=== PATIENT | male | born 1980 | race Caucasian/White ===

== ENCOUNTER 2021-01-13 22:44 | Inpatient (IN) | payer BC, OTHER ==
[~2021-01-13] VITALS: Ht 180 cm; Wt 97.0 kg
[2021-01-13] MEDS ORDERED: ACETAMINOPHEN 500 MG TAB (TYLENOL) PO ONE (23:00)
[2021-01-13] MEDS ORDERED: ONDANSETRON 4 MG/2 ML (SDV) Z0FRAN IVP ONE (23:00)
[2021-01-13] MEDS ORDERED: cefTRIAXone 2,000 MG in NS (IVPB) 50 ML IV ONE (23:00)
[2021-01-13] MEDS ORDERED: KETOROLAC 30 MG/ML VIAL IVP ONE (23:00)
[2021-01-13] MEDS ORDERED: NS IV 1000 ML 1,000 ML IV SCH (23:00)
--- NOTE | 2021-01-13 23:15 | ED General ---
General Chief Complaint: - Reproductive Stated Complaint: UNRIMARY PAIN/CHILLS Nursing Triage Note: Pt reports beeing dx with UTI by PCP in [place] today. Pt is c/o fever, back spasms x 1 hour. Pt given amoxicillin today. Denies CP or SOA. Pt is A&O x 4. History of Present Illness Date Seen by Provider: Jan 13, 2021 Time Seen by Provider: 23:10 Initial Comments Patient presenting to emergency department for evaluation of fevers chills aches dysuria that started yesterday but became worse today. He was seen at an urgent care in [place] and diagnosed with a urinary tract infection and was prescribed amoxicillin and he took 1 dose this afternoon and another dose this evening however he says that he is feeling much worse. He presented with tachycardia at 130 and a fever of 38.1. Patient says that he did not bring the testing from the urgent care but he was told it was definitely a significant urinary tract infection. Patient says he has a history of psoriatic arthritis but does not take any immunosuppressants. He says he has been vaccinated for the Covid virus. He denies cough abdominal pain headache neck stiffness rash or shortness of breath. He says he does have back pain and that the chills at times can cause his whole body to spasm. He appears nontoxic but is febrile and tachycardic. Allergies and Home Medications Allergies Coded Allergies: No Known Drug Allergies (Unverified , 01/13/21) Patient Home Medication List Home Medication List Reviewed: Yes Review of Systems Review of Systems Constitutional: chills, fever Respiratory: no symptoms reported Cardiovascular: no symptoms reported Gastrointestinal: no symptoms reported Genitourinary: dysuria Musculoskeletal: back pain Skin: no symptoms reported Psychiatric/Neurological: No Symptoms Reported All Other Systems Reviewed Negative Unless Noted: Yes Physical Exam Vital Signs Vital Signs - First Documented 01/13/21 22:57 Temp 38.1 Pulse 135 Resp 16 B/P (MAP) 133/70 (91) Pulse Ox 96 O2 Delivery Room Air Capillary Refill : Less Than 3 Seconds Height, Weight, BMI Height: '" Weight: lbs. oz. kg; 29.00 BMI Method: General Appearance: No Apparent Distress HEENT: PERRL/EOMI Neck: Supple Respiratory: No Respiratory Distress Cardiovascular: Tachycardia Gastrointestinal: Non Tender, Soft Back: Normal Inspection Extremity: Normal Capillary Refill Neurologic/Psychiatric: Alert, Oriented x3 Skin: Warm/Dry Focused Exam Lactate Level 01/13/21 23:00: Lactic Acid Level 1.26 Lactic Acid Level Laboratory Tests Test 01/13/21 23:00 Lactic Acid Level 1.26 MMOL/L (0.50-2.00) Progress/Results/Core Measures Suspected Sepsis SIRS Temperature: Pulse: 135 Respiratory Rate: 16 Laboratory Tests 01/13/21 23:00: White Blood Count 9.3 Blood Pressure 133 /70 Mean: 91 01/13/21 23:00: Lactic Acid Level 1.26 Laboratory Tests 01/13/21 23:00: Creatinine 1.00, Platelet Count 192, Total Bilirubin 0.4 Results/Orders Lab Results Laboratory Tests Test 01/13/21 23:00 01/13/21 23:40 Range/Units White Blood Count 9.3 4.3-11.0 10^3/uL Red Blood Count 4.78 4.30-5.52 10^6/uL Hemoglobin 13.4 13.3-17.7 g/dL Hematocrit 40 40-54 % Mean Corpuscular Volume 84 80-99 fL Mean Corpuscular Hemoglobin 28 25-34 pg Mean Corpuscular Hemoglobin Concent 33 32-36 g/dL Red Cell Distribution Width 13.8 10.0-14.5 % Platelet Count 192 130-400 10^3/uL Mean Platelet Volume 10.0 9.0-12.2 fL Immature Granulocyte % (Auto) 0 % Neutrophils (%) (Auto) 91 H 42-75 % Lymphocytes (%) (Auto) 4 L 12-44 % Monocytes (%) (Auto) 4 0-12 % Eosinophils (%) (Auto) 0 0-10 % Basophils (%) (Auto) 0 0-10 % Neutrophils # (Auto) 8.4 H 1.8-7.8 X 10^3 Lymphocytes # (Auto) 0.4 L 1.0-4.0 X 10^3 Monocytes # (Auto) 0.4 0.0-1.0 X 10^3 Eosinophils # (Auto) 0.0 0.0-0.3 10^3/uL Basophils # (Auto) 0.0 0.0-0.1 10^3/uL Immature Granulocyte # (Auto) 0.0 0.0-0.1 10^3/uL Neutrophils % (Manual) 79 % Lymphocytes % (Manual) 14 % Monocytes % (Manual) 1 % Band Neutrophils 5 % Atypical Lymphocytes 1 % Platelet Estimate NORMAL Blood Morphology Comment NORMAL Sodium Level 136 135-145 MMOL/L Potassium Level 3.8 3.6-5.0 MMOL/L Chloride Level 100 98-107 MMOL/L Carbon Dioxide Level 22 21-32 MMOL/L Anion Gap 14 5-14 MMOL/L Blood Urea Nitrogen 20 H 7-18 MG/DL Creatinine 1.00 0.60-1.30 MG/DL Estimat Glomerular Filtration Rate 82 BUN/Creatinine Ratio 20 Glucose Level 193 H 70-105 MG/DL Lactic Acid Level 1.26 0.50-2.00 MMOL/L Calcium Level 9.0 8.5-10.1 MG/DL Corrected Calcium 8.8 8.5-10.1 MG/DL Total Bilirubin 0.4 0.1-1.0 MG/DL Aspartate Amino Transf (AST/SGOT) 24 5-34 U/L Alanine Aminotransferase (ALT/SGPT) 30 0-55 U/L Alkaline Phosphatase 100 40-136 U/L Total Protein 6.9 6.4-8.2 GM/DL Albumin 4.3 3.2-4.5 GM/DL Urine Color YELLOW Urine Clarity CLOUDY Urine pH 6.0 5-9 Urine Specific [place] 1.010 L 1.016-1.022 Urine Protein NEGATIVE NEGATIVE Urine Glucose (UA) NEGATIVE NEGATIVE Urine Ketones NEGATIVE NEGATIVE Urine Nitrite NEGATIVE NEGATIVE Urine Bilirubin NEGATIVE NEGATIVE Urine Urobilinogen 0.2 < = 1.0 MG/DL Urine Leukocyte Esterase 3+ H NEGATIVE Urine RBC (Auto) TRACE-I H NEGATIVE Urine RBC RARE /HPF Urine WBC 50-100 H /HPF Urine Crystals NONE /LPF Urine Bacteria MODERATE H /HPF Urine Casts NONE /LPF Urine Mucus SMALL H /LPF Urine Culture Indicated YES My Orders Orders - LARA FRIEND DO Blood Culture (01/13/21 23:00) Iv/Invasive Line Insertion .IV start (01/13/21 23:00) Cbc With Automated Diff (01/13/21 23:00) Comprehensive Metabolic Panel (01/13/21 23:00) Ua Culture If Indicated (01/13/21 23:00) Lactic Acid Analyzer (01/13/21 23:00) Ns Iv 1000 Ml (Sodium Chloride 0.9%) (11/11/21 23:00) Ondansetron Injection (Zofran Injectio (01/13/21 23:00) Ketorolac Injection (Toradol Injection) (01/13/21 23:00) Acetaminophen Tablet (Tylenol Tablet) (01/13/21 23:00) Ceftriaxone (Rocephin) (01/13/21 23:00) Manual Differential (01/13/21 23:00) Ns Iv 1000 Ml (Sodium Chloride 0.9%) (01/13/21 23:49) Urine Culture (01/13/21 23:40) Ct Abdomen/Pelvis W (01/14/21 00:23) Medications Given in ED Current Medications Medications Dose Ordered Sig/Rafael Route Start Time Stop Time Status Last Admin Dose Admin Acetaminophen 1,000 mg ONCE ONCE PO 01/13/21 23:00 01/13/21 23:02 DC 01/13/21 23:05 1,000 MG Ceftriaxone Sodium 2000 mg/ Sodium Chloride 50 ml @ 100 mls/hr ONCE ONCE IV 01/13/21 23:00 01/13/21 23:29 DC 01/13/21 23:05 100 MLS/HR Ketorolac Tromethamine 15 mg ONCE ONCE IVP 01/13/21 23:00 01/13/21 23:02 DC 01/13/21 23:05 15 MG Ondansetron HCl 4 mg ONCE ONCE IVP 01/13/21 23:00 01/13/21 23:02 DC 01/13/21 23:05 4 MG Vital Signs/I&O 01/13/21 01/13/21 22:57 23:05 Temp 38.1 38.1 Pulse 135 Resp 16 B/P (MAP) 133/70 (91) Pulse Ox 96 O2 Delivery Room Air Capillary Refill : Less Than 3 Seconds Blood Pressure Mean: 91 Progress Note : Progress Note Patient does meet septic criteria with his fever and tachycardia. I will check labs urinalysis start treating him for sepsis and reassess. His map is 83 so he does not need pressors at this time. Patient has symptoms consistent with pyelonephritis given his strong UTI on urinalysis and having back pain. Patient is requesting transfer to [facility] so I spoke to a Dr. Park and he said that they cannot request him as he feels that a urology consult may be necessary and they do not have a urologist. I explained this to the patient and then he said that he is okay with transfer to [facility]. I spoke to Dr. Duarte and she agreed to accept patient for transfer. Patient has improved significantly as he is now resting comfortably and his heart rate has improved from 1 35-90 and he continues to have a map greater than 75. He does not meet severe sepsis criteria as his lactate is below 4 and his blood pressure is normal. 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 Patient's kidney function is normal. Given he is a male with a urinary tract infection I am going to get a CT scan to rule out other pathology such as renal abscess. Ureter stone is felt to be less likely given there is no hematuria but this is certainly a possibility as well. Patient will be transferred in a stable condition with much improved vital signs in the emergency department. Critical Care Note Critical Care Total Time (minutes) 35 Departure Impression Primary Impression: UTI (urinary tract infection) Qualified Codes: N10 - Acute pyelonephritis Additional Impressions: Sepsis Qualified Codes: A41.9 - Sepsis, unspecified organism Failure of outpatient treatment Hyperglycemia Disposition: ADMITTED INPATIENT Condition: Stable Transfer Transfer Reason: Exceeds level of care Time Spoke to Accepting Phy: 12:25 Transfer Facility: [facility] Method of Transfer: EMS Departure-Patient Inst. Referrals: SHARON MATTSON MD (PCP/Family) Primary Care Physician LARA FRIEND DO Jan 13, 2021 23:15
[2021-01-13 23:23] LABS: HEMOGLOBIN 13.4 g/dL (13.3-17.7); MEAN CORPUSCULAR HEMOGLOBIN 28 pg (25-34); WHITE BLOOD COUNT 9.3 10^3/uL (4.3-11.0)
[2021-01-13 23:24] LABS: BASOPHILS % (AUTO) 0 % (0-10); EOSINOPHILS % (AUTO) 0 % (0-10); HEMATOCRIT 40 % (40-54); LYMPHOCYTES # (AUTO) 0.4 X 10^3 (1.0-4.0); LYMPHOCYTES % (AUTO) 4 % (12-44); MEAN CORPUSCULAR HGB CONC 33 g/dL (32-36); MEAN CORPUSCULAR VOLUME 84 fL (80-99); MONOCYTES # (AUTO) 0.4 X 10^3 (0.0-1.0); MONOCYTES % (AUTO) 4 % (0-12); NEUTROPHILS # (AUTO) 8.4 X 10^3 (1.8-7.8); NEUTROPHILS % (AUTO) 91 % (42-75); PLATELET COUNT 192 10^3/uL (130-400)
[2021-01-13 23:39] LABS: BAND NEUTROPHILS 5 %; LYMPHOCYTES % (MANUAL) 14 %; NEUTROPHILS % (MANUAL) 79 %
[2021-01-13 23:40] LABS: ATYPICAL LYMPHOCYTES 1 %; MONOCYTES % (MANUAL) 1 %; PLATELET ESTIMATE NORMAL; RBC MORPH NORMAL
[2021-01-13 23:44] LABS: POTASSIUM 3.8 MMOL/L (3.6-5.0)
[2021-01-13 23:45] LABS: ALBUMIN 4.3 GM/DL (3.2-4.5); BILIRUBIN,TOTAL 0.4 MG/DL (0.1-1.0); TOTAL PROTEIN 6.9 GM/DL (6.4-8.2)
[2021-01-13] MEDS ORDERED: NS IV 1000 ML 2,000 ML ONE (23:49)
[2021-01-13 23:51] LABS: BILIRUBIN,URINE NEGATIVE (NEGATIVE); CLARITY,URINE CLOUDY; COLOR,URINE YELLOW; GLUCOSE, URINE (UA) NEGATIVE (NEGATIVE); KETONES,URINE NEGATIVE (NEGATIVE); LEUKOCYTE ESTERASE ,URINE 3+ (NEGATIVE); NITRITE,URINE NEGATIVE (NEGATIVE); PROTEIN,URINE NEGATIVE (NEGATIVE)
[2021-01-13 23:58] LABS: BACTERIA,URINE MODERATE /HPF; RBC,URINE RARE /HPF; WBC,URINE 50-100 /HPF
[2021-01-14] MEDS ORDERED: NS 100 ML (IVPB) BAG IV ONE (00:45)
[2021-01-14] MEDS ORDERED: HOLD METFORMIN - RECEIVED CONTRAST 20 ML VIAL IV SCH (00:45)
[2021-01-14] MEDS ORDERED: IOHEXOL 350 MG/ML 100 ML (OMNIPAQUE 350) VIAL IV ONE (00:45)
[2021-01-14 02:02] VITALS: BP 103/75
--- OUTSIDE RECORDS SUMMARY | 2021-01-14 02:14 | XMS REPORT | Clinical Summary ---
Author Author [facility] Organization [facility] Address Unknown Phone Unavailable Care Team Providers Care Executive Director Contract Shop Name Role Phone Sekou Coats MD PCP Allergies No known active allergies Medications End Date Status Medication Sig Dispensed Refills Start Date Active citalopram (CELEXA) 20 mg Take 30 mg by 0 tablet mouth daily. Active omeprazole (PRILOSEC) 20 Take 20 mg by 0 MG capsule mouth 2 (two) times a day. Active Problems Not on file Social History Date Tobacco Use Types Packs/Day Years Used Never Smoker Comments Alcohol Use Standard Drinks/Week No 0 (1 standard drink = 0.6 o z pure alcohol) Sex Assigned at Date Recorded Not on file Last Filed Vital Signs Reading Time Taken Comments Vital Sign 124/78 09/19/2016 7:41 PM CDT Blood Pressure 71 09/19/2016 7:41 PM CDT Pulse 36.7 C (98.1 F) 09/19/2016 4:18 PM CDT Temperature 22 09/19/2016 7:41 PM CDT Respiratory Rate 95% 09/19/2016 7:41 PM CDT Oxygen Saturation - - Inhaled Oxygen Concentration 93 kg (205 lb 0.4 oz) 09/19/2016 6:09 PM CDT Weight 177.8 cm (5' 10") 09/19/2016 4:18 PM CDT Height 29.42 09/19/2016 4:18 PM CDT Body Mass Index Plan of Treatment Not on file Results Not on filefrom Last 3 Months Insurance Type Payer Benefit Subscriber ID Effective Phone Address Plan / Dates Group BLUE CROSS BLUE SHIELD [facility] PREF [id number] 2012-P [address] [facility] [employer] cristinoent [id number] [place] [address] Conor Thrasher Personal/F Self 1980 [address] [place] (Home) [place] [address] Conor Thrasher Personal/F Self 1980 [address] [place] (Home) [place] [address] Advance Directives For more information, please contact: [phone] Patient Database Specialist Explanation Type Date Recorded Advance Directives and Living Will Power of Computer Numerical Control Grinder Care Teams Start Date End Date Executive Director Contract Shop Relationship Specialty 09/19/16 Sekou Coats MD PCP - General Family [address] [place] [id number]
--- OUTSIDE RECORDS SUMMARY | 2021-01-14 02:14 | XMS REPORT | Encounter Summary ---
Author Author [facility] Organization [facility] Address Unknown Phone Unavailable Care Team Providers Care Tube Mill Operator Name Role Phone Sekou Coats MD PCP Reason for Visit * Reason Comments Medication Refill Encounter Details Care Team Description Date Type Department Chaka Anaya MD [address] [place] [id number] 01/08/2021 Refill Rheumatology: [facility] [address] [place] [phone] Social History Date Tobacco Use Types Packs/Day Years Used Never Smoker Smokeless Tobacco: Current User Comments Alcohol Use Standard Drinks/Week Not Currently 0 (1 standard drink = 0.6 o z pure alcohol) Sex Assigned at Date Recorded Male 07/15/2020 12:46 PM CDT documented as of this encounter Functional Status Date of Assessment Functional Status Response 10/12/2020 Does the patient have a hearing impairment: No 10/12/2020 Does the patient have a visual impairment: No 10/12/2020 Does the patient have impaired ambulation: No 10/12/2020 Does the patient have an activity of daily living No (ADL) impairment: 10/12/2020 Does the patient have an instrumental activity of No daily living (IADL) impairment: Date of Assessment Cognitive Status Response 10/12/2020 Does the patient have a cognitive impairment: No documented as of this encounter Ordered Prescriptions Start Date End Date Prescription Sig Dispensed Refills 01/10/2021 naproxen (NAPROSYN) 500 TAKE 1 TABLET 60 tablet 1 mg tablet BY MOUTH TWICE DAILY WITH MEALS AND WITH FOOD documented in this encounter Plan of Treatment Not on filedocumented as of this encounter Visit Diagnoses Not on filedocumented in this encounter Discontinued Medications Start Date End Date Medication Sig Discontinue Reason 11/10/2020 01/10/2021 naproxen (NAPROSYN) 500 Take one mg tablet tablet by mouth twice daily with meals. Take with food. documented as of this encounter Additional Health Concerns Noted Time Assessment 10/12/2020 10:17 AM CDT A fall risk assessment has been complet ed for the patient 10/12/2020 10:17 AM CDT PHQ-2 Depression Total Score: 0 documented as of this encounter Care Teams Start Date End Date Tube Mill Operator Relationship Specialty 07/15/20 Sekou Coats MD PCP - General [address] [phone] documented as of this encounter
--- OUTSIDE RECORDS SUMMARY | 2021-01-14 02:14 | XMS REPORT | Clinical Summary ---
Author Author [facility] Organization [facility] Address Unknown Phone Unavailable Care Team Providers Care Refining Equipment Operator Name Role Phone Sekou Coats MD PCP Source Comments Some departments are not documenting in the electronic medical record. If you d o not see the information that you expected, contact Release of Information in [facility] [employer] Information Management department at [phone] for further assistan ce in locating additional records.[facility] Allergies Comments Active Allergy Reactions Severity Noted Date Sinu pressure Seasonal Allergies SNEEZING, SEE Low 11/26/2015 COMMENTS Medications End Date Status Medication Sig Dispensed Refills Start Date Active omeprazole DR(+) Take 20 mg by 0 (PRILOSEC) 40 mg capsule mouth daily before breakfast. 20 mg Active fluticasone (FLONASE) 50 Apply 2 0 mcg/actuation nasal spray Sprays to each nostril as directed daily. Shake bottle gently before using. Active duloxetine DR (CYMBALTA) Take 60 mg by 0 60 mg capsule mouth daily. Active lisinopriL (ZESTRIL) 5 mg Take 5 mg by 0 tablet mouth daily. Active loratadine (CLARITIN) 10 Take 10 mg by 0 mg tablet mouth every morning. Active NALTREXONE 1.5 MG ORAL Take one 30 capsule 1 CAPSULE (COMPOUND) capsule by 1 mouth daily. Active naproxen (NAPROSYN) 500 TAKE 1 TABLET 60 tablet 1 mg tablet BY MOUTH 1 TWICE DAILY WITH MEALS AND WITH FOOD 01/10/2021 Discontinued naproxen (NAPROSYN) 500 Take one 60 tablet 1 mg tablet tablet by 1 mouth twice daily with meals. Take with food. Active Problems Problem Noted Date Psoriatic arthritis 11/26/2015 Encounters Care Team Description Date Type Specialty Chaka Anaya MD 01/08/2021 Refill Rheumatology Chaka Anaya MD 12/08/2020 Refill Rheumatology Chaka Anaya MD 11/12/2020 Hospital Lab Encounter 11/12/2020 Travel from Last 3 Months Surgical History Surgery Date Site/Laterality Comments ANKLE SURGERY x3 1994 Medical History Medical History Date Comments Psoriasis Psoriatic arthritis (HCC) Iritis Hypertension Depression Family History Medical History Relation Name Comments Cancer Father Hearing Loss Father Diabetes Maternal Grandfather Vision Loss Paternal Grandfather Arthritis Paternal Grandmother Arthritis-osteo Paternal Grandmother Relation Name Status Comments Father Alive throat Maternal Grandfather Mother Alive Paternal Grandfather Paternal Grandmother Social History Date Tobacco Use Types Packs/Day Years Used Never Smoker Smokeless Tobacco: Current User Comments Alcohol Use Standard Drinks/Week Not Currently 0 (1 standard drink = 0.6 o z pure alcohol) Sex Assigned at Date Recorded Male 07/15/2020 12:46 PM CDT Last Filed Vital Signs Reading Time Taken Comments Vital Sign 135/79 10/12/2020 10:19 AM CDT Blood Pressure 100 10/12/2020 10:11 AM CDT Pulse 36.4 C (97.5 F) 10/12/2020 10:11 AM CDT Temperature 18 10/12/2020 10:11 AM CDT Respiratory Rate 98% 10/12/2020 10:11 AM CDT Oxygen Saturation - - Inhaled Oxygen Concentration 98.4 kg (217 lb) 10/12/2020 10:11 AM CDT Weight 180.3 cm (5' 11") 10/12/2020 10:11 AM CDT Height 30.27 10/12/2020 10:11 AM CDT Body Mass Index Plan of Treatment Health Maintenance Due Date Last Done Comments HIV SCREENING 1994 DTAP/TDAP VACCINES (1 - 1997 Tdap) PHYSICAL (COMPREHENSIVE) 1997 EXAM INFLUENZA VACCINE 10/03/2020 HEPATITIS C SCREENING Completed 10/12/2020 Procedures Comments Procedure Name Priority Date/Time Associated Diag nosis HC HEPATIC FUNCTION PANEL Routine 11/12/2020 Elev ated alanine 3:55 PM CDT aminotransferase (ALT) level from Last 3 Months Results * LIVER FUNCTION PANEL (11/12/2020 3:55 PM CDT) Total Bilirubin 0.3 0.3 - 1.2 MG/DL [facility] Bilirubin, <0.1 <0.4 MG/DL [facility] Direct Albumin 4.6 3.5 - 5.0 G/DL [facility] Alk Phosphatase 75 25 - 110 U/L [facility] AST (SGOT) 36 7 - 40 U/L [facility] ALT (SGPT) 91 (H) 7 - 56 U/L [facility] Total Protein 7.3 6.0 - 8.0 G/DL [facility] Specimen Blood Performing Organization Address City/State/ZIP Code P agueda Number [facility] [address] [place] [address] from Last 3 Months Insurance Type Payer Benefit Subscriber ID Effective Phone Address Plan / Dates Group PPO BCBS GIANNA BCBS GIANNA [id number] 2012-P [phone] [id number] [place] [address] Advance Directives Patient Nurse Research Explanation Type Date Recorded Advance Directive/DPOA Care Teams Start Date End Date Refining Equipment Operator Relationship Specialty 07/15/20 Sekou Coats MD PCP - General Family [address] [place] [phone]
--- OUTSIDE RECORDS SUMMARY | 2021-01-14 02:15 | XMS REPORT | Encounter Summary ---
Author Author [facility] Organization [facility] Address Unknown Phone Unavailable Care Team Providers Care Machine Crater Name Role Phone Sekou Coats MD PCP Reason for Visit * Reason Comments Medication Refill Encounter Details Care Team Description Date Type Department Chaka Anaay MD [address] [place] [id number] 12/08/2020 Refill Rheumatology: [facility] [address] [phone] Social History Date Tobacco Use Types Packs/Day Years Used Never Smoker Smokeless Tobacco: Current User Comments Alcohol Use Standard Drinks/Week Not Currently 0 (1 standard drink = 0.6 o z pure alcohol) Sex Assigned at Date Recorded Male 07/15/2020 12:46 PM CDT Date Recorded COVID-19 Exposure Response 11/12/2020 3:43 PM CDT In the last month, have you been in contact with No / Unsure someone who was confirmed or suspected to have Coronavirus / COVID-19? documented as of this encounter Functional Status [...] Date End Date Prescription Sig Dispensed Refills 12/10/2020 NALTREXONE 1.5 MG ORAL Take one 30 capsule 1 CAPSULE (COMPOUND) capsule by mouth daily. documented in this encounter Miscellaneous Notes * Telephone Encounter - Whit Cruz RN - 12/10/2020 12:13 PM CDT Pharmacy is requesting a refill of naltrexone. Pt last seen 10/12/20. Pt schedule d for follow up on 03/15/21. Per last OV "The plan today is to start him on low-d ose naltrexone, this is specifically given the fact that fatigue seems to be the most prominent problem he is dealing with, and this may be helpful in this rega rd, less favorable options would include stimulants moving forward which we will consider, I will start 1.5 mg daily and increase the dose as needed, he will use higher dose of naproxen, 500 mg twice daily while remains on omeprazole, at this point in time I do not plan to start him on any biological therapy but we will consider Stelara or other TNF inhibitors moving forward." Routing to Dr. Anaya for review. documented in this encounter Plan of Treatment Not on filedocumented as of this encounter Visit Diagnoses Not on filedocumented in this encounter Discontinued Medications Start Date End Date Medication Sig Discontinue Reason 10/12/2020 12/08/2020 NALTREXONE 1.5 MG ORAL Take one Reorder CAPSULE (COMPOUND) capsule by mouth daily. documented as of this encounter Additional Health Concerns Noted Time Assessment 10/12/2020 10:17 AM CDT A fall risk assessment has been complet ed for the patient 10/12/2020 10:17 AM CDT PHQ-2 Depression Total Score: 0 documented as of this encounter Care Teams Start Date End Date Machine Crater Relationship Specialty 07/15/20 Sekou Coats MD PCP - [address] [phone] documented as of this encounter
[2021-01-14] MEDS ORDERED: NS IV 1000 ML 1,000 ML ONE (02:16)
[2021-01-14] MEDS ORDERED: IBUPROFEN 600 MG (MOTRIN) TAB PO PRN (02:45)
[2021-01-14] MEDS ORDERED: ACETAMINOPHEN 500 MG TAB (TYLENOL) PO PRN (02:45)
[2021-01-14] MEDS: NS IV 1000 ML 1,000 ML IV SCH ×2 (03:19→08:41)
[2021-01-14 04:00] VITALS: BP 106/65
--- NOTE | 2021-01-14 04:58 | Diagnostic Imaging Report ---
PROCEDURE: CT abdomen and pelvis with contrast. TECHNIQUE: Multiple contiguous axial images were obtained through the abdomen and pelvis after administration of intravenous contrast. Auto Exposure Controls were utilized during the CT exam to meet ALARA standards for radiation dose reduction. All CT scans use one or more of the following dose optimizing techniques: automated exposure control, MA and/or KvP adjustment based on patient size and exam type or iterative reconstruction. INDICATION: Painful burning urination, spasms. No priors. FINDINGS: The urinary bladder is distended with its fundal aspect extending to the level of the umbilicus measuring 18 cm in length x 9.8 cm transverse x 11.5 cm AP (estimated volume 1055 mL). Despite this magnitude of distention the bladder wall is thickened; correlate for cystitis. The bladder wall thickening is homogenous and diffuse with no focal nodularity or discrete measurable mass. There is no appreciable perivesical stranding or edema. The patient has mild bilateral hydroureteronephrosis. The ureters are dilated through the ureterovesical junctions with no opaque urinary tract calculi. No perinephric or periureteric stranding. No urinoma. No appreciable opaque urinary tract calculi. Liver, gallbladder, bile ducts, spleen, adrenals, pancreas unremarkable. The aortoiliac vessels patent and nonaneurysmal. There is no small or large bowel obstruction. There is no pneumatosis or free gas. There is no appendicitis or diverticulitis. Prostate and seminal vesicles unremarkable. The lung bases and the osseous structures are unremarkable. IMPRESSION: 1. Thick-walled distended urinary bladder with estimated volume of greater than 1000 mL. This likely accounts for mild bilateral hydroureteronephrosis with no opaque stone or discrete mass. Nonfocal nonenlarged and nonacute appearing prostate. 2. The remaining abdominal pelvic solid and hollow viscera were unremarkable. Dictated by: Dictated on workstation # [id number]
[2021-01-14] MEDS ORDERED: CATHETER FLUSH 10 ML SYR IV PRN (07:30)
[2021-01-14 07:34] VITALS: BP 107/68
[2021-01-14] MEDS ORDERED: LORA10TA76 PO (11:23)
[2021-01-14] MEDS ORDERED: LISI10TA25 PO (11:23)
[2021-01-14] MEDS ORDERED: NAPR-915 PO (11:23)
[2021-01-14] MEDS ORDERED: NALTREXONE PO (11:23)
[2021-01-14] MEDS ORDERED: ASPI-789 PO (11:23)
[2021-01-14] MEDS ORDERED: OMEP20CA18 PO (11:23)
[2021-01-14] MEDS ORDERED: DULO60CA59 PO (11:23)
[2021-01-14] MEDS ORDERED: AMOX1TAB12 PO (11:23)
[2021-01-14 11:33] VITALS: BP 105/54
--- NOTE | 2021-01-14 12:26 | Short Stay Summary ---
HPI History of Present Illness: 40 yo M with h/o urethral stricture that presented with abdominal pain and chills. Patient states that he started feeling bad yesterday afternoon and went into walkin clinic and was told he had a bad UTI. He then went and picked up his antibiotics and then started have chills. Patient states that he had a dilation several years ago. States that he is feeling much better this AM. Source: patient, spouse Exam Limitations: no limitations Date seen by provider: Jan 14, 2021 Time Seen by Provider: 10:25 Attending Physician Africa Duarte MD PCP Sekou Coats MD Consult Date of Admission Jan 14, 2021 at 02:00 Home Medications Home Medications Reviewed patient Home Medication Reconciliation performed by pharmacy medication reconciliations pharmacy technician trainee and/or nursing. Patients Allergies have been reviewed. Allergies Coded Allergies: No Known Drug Allergies (Unverified , 01/13/21) NAJ-Bryjma-Fpmoxv Hx Patient Social History Living Status: Lives with independently Alcohol Use?: No Have you traveled recently?: No Review of Systems ([facility]) Constitutional: chills, fever, malaise EENTM: no symptoms reported; No mouth pain, No nose congestion, No nose pain Respiratory: no symptoms reported; No cough, No dyspnea on exertion, No short of breath Cardiovascular: no symptoms reported; No chest pain, No edema, No palpitations Gastrointestinal: abdominal pain; No constipation, No diarrhea; loss of appetite, nausea; No vomiting Genitourinary: No dysuria; frequency Musculoskeletal: back pain; No joint pain, No muscle pain Skin: no symptoms reported; No lesions, No rash Reviewed Test Results Reviewed Test Results Lab Laboratory Tests Test 01/13/21 23:00 01/13/21 23:40 Range/Units White Blood Count 9.3 4.3-11.0 10^3/uL Red Blood Count 4.78 4.30-5.52 10^6/uL Hemoglobin 13.4 13.3-17.7 g/dL Hematocrit 40 40-54 % Mean Corpuscular Volume 84 80-99 fL Mean Corpuscular Hemoglobin 28 25-34 pg Mean Corpuscular Hemoglobin Concent 33 32-36 g/dL Red Cell Distribution Width 13.8 10.0-14.5 % Platelet Count 192 130-400 10^3/uL Mean Platelet Volume 10.0 9.0-12.2 fL Immature Granulocyte % (Auto) 0 % Neutrophils (%) (Auto) 91 H 42-75 % Lymphocytes (%) (Auto) 4 L 12-44 % Monocytes (%) (Auto) 4 0-12 % Eosinophils (%) (Auto) 0 0-10 % Basophils (%) (Auto) 0 0-10 % Neutrophils # (Auto) 8.4 H 1.8-7.8 X 10^3 Lymphocytes # (Auto) 0.4 L 1.0-4.0 X 10^3 Monocytes # (Auto) 0.4 0.0-1.0 X 10^3 Eosinophils # (Auto) 0.0 0.0-0.3 10^3/uL Basophils # (Auto) 0.0 0.0-0.1 10^3/uL Immature Granulocyte # (Auto) 0.0 0.0-0.1 10^3/uL Neutrophils % (Manual) 79 % Lymphocytes % (Manual) 14 % Monocytes % (Manual) 1 % Band Neutrophils 5 % Atypical Lymphocytes 1 % Platelet Estimate NORMAL Blood Morphology Comment NORMAL Sodium Level 136 135-145 MMOL/L Potassium Level 3.8 3.6-5.0 MMOL/L Chloride Level 100 98-107 MMOL/L Carbon Dioxide Level 22 21-32 MMOL/L Anion Gap 14 5-14 MMOL/L Blood Urea Nitrogen 20 H 7-18 MG/DL Creatinine 1.00 0.60-1.30 MG/DL Estimat Glomerular Filtration Rate 82 BUN/Creatinine Ratio 20 Glucose Level 193 H 70-105 MG/DL Lactic Acid Level 1.26 0.50-2.00 MMOL/L Calcium Level 9.0 8.5-10.1 MG/DL Corrected Calcium 8.8 8.5-10.1 MG/DL Total Bilirubin 0.4 0.1-1.0 MG/DL Aspartate Amino Transf (AST/SGOT) 24 5-34 U/L Alanine Aminotransferase (ALT/SGPT) 30 0-55 U/L Alkaline Phosphatase 100 40-136 U/L Total Protein 6.9 6.4-8.2 GM/DL Albumin 4.3 3.2-4.5 GM/DL Urine Color YELLOW Urine Clarity CLOUDY Urine pH 6.0 5-9 Urine Specific [place] 1.010 L 1.016-1.022 Urine Protein NEGATIVE NEGATIVE Urine Glucose (UA) NEGATIVE NEGATIVE Urine Ketones NEGATIVE NEGATIVE Urine Nitrite NEGATIVE NEGATIVE Urine Bilirubin NEGATIVE NEGATIVE Urine Urobilinogen 0.2 < = 1.0 MG/DL Urine Leukocyte Esterase 3+ H NEGATIVE Urine RBC (Auto) TRACE-I H NEGATIVE Urine RBC RARE /HPF Urine WBC 50-100 H /HPF Urine Crystals NONE /LPF Urine Bacteria MODERATE H /HPF Urine Casts NONE /LPF Urine Mucus SMALL H /LPF Urine Culture Indicated YES Physical Exam-([facility]) Physical Exam Vital Signs VS - Last 72 Hours, by Label 01/13/21 01/13/21 01/14/21 01/14/21 22:57 23:05 01:45 02:02 Temp 38.1 38.1 36.8 Pulse 135 88 86 Resp 16 14 20 B/P (MAP) 133/70 (91) 114/82 103/75 (84) Pulse Ox 96 98 97 O2 Delivery Room Air Room Air Room Air 01/14/21 01/14/21 01/14/21 01/14/21 02:47 02:52 04:00 07:00 Temp 37.1 Pulse 74 75 64 Resp 18 B/P (MAP) 106/65 (79) Pulse Ox 97 96 O2 Delivery Room Air Room Air 01/14/21 01/14/21 01/14/21 07:34 08:00 11:33 Temp 36.2 36.5 Pulse 74 67 Resp 18 18 B/P (MAP) 107/68 (81) 105/54 (71) Pulse Ox 98 97 O2 Delivery Room Air Room Air Room Air Capillary Refill : Less Than 3 Seconds General Appearance: WD/WN, no apparent distress HEENT: PERRL/EOMI Neck: non-tender, full range of motion Respiratory: chest non-tender, lungs clear, normal breath sounds, no respiratory distress, no accessory muscle use Cardiovascular: normal peripheral pulses, regular rate, rhythm, no edema, no murmur Gastrointestinal: normal bowel sounds, non tender, soft, no organomegaly Back: no CVA tenderness, no vertebral tenderness Extremities: normal range of motion, non-tender, normal inspection, no pedal edema, no calf tenderness, normal capillary refill 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, no motor/sensory deficits, alert, normal mood/affect, oriented x 3 Skin: normal color, warm/dry Lymphatic: no adenopathy Short Stay Diagnosis Discharge Diagnosis-Short Stay Admission Diagnosis See problem list Final Discharge Diagnosis See below Conclusion Plan See problem list Was the Problem List Reviewed?: Yes Assessment/Plan Assessment/Plan Admission Status: Observation (1) Sepsis Status: Acute Assessment & Plan: - HDS, Good urine outpatient, chills have resolved Qualifiers: Qualified Codes: A41.9 - Sepsis, unspecified organism (2) UTI (urinary tract infection) Status: Acute Assessment & Plan: - Transition to PO antibiotics Qualifiers: Qualified Codes: N10 - Acute pyelonephritis (3) Pyelonephritis Status: Acute (4) Ureteral stricture Status: Chronic Assessment & Plan: - Will f.u with Urology AFRICA DUARTE MD Jan 14, 2021 12:26
[2021-01-14] MEDS ORDERED: CATHETER FLUSH 10 ML SYR IV SCH (14:00)
[2021-01-14] MEDS ORDERED: CEFD300C3 PO (15:35)
--- NOTE | 2021-01-14 15:36 | Discharge Summary ---
Discharge [facility] Reconcile Patient Problems Problems Reviewed?: Yes Discharge Medications New, Converted or Re-Newed RX: Transmitted to Pharmacy New Medications: Cefdinir (Cefdinir) 300 Mg Capsule 300 MG PO BID@0700,1900 for 5 Days, #10 CAP Continued Medications: Aspirin/Acetaminophen/Caffeine (Excedrin Migraine Caplet) 1 Each Tablet 2 EACH PO Q6-8HR PRN for Headache, TAB Duloxetine HCl (Duloxetine HCl) 60 Mg Capsule.dr 60 MG PO HS, CAP Lisinopril (Lisinopril) 10 Mg Tablet 10 MG PO DAILY, TAB Loratadine (Claritin) 10 Mg Tablet 10 MG PO DAILY, TAB [Naltrexone] () CAP 1.5 MG PO HS, CAP COMPOUNDED AT Naproxen (Naproxen) 500 Mg Tablet 500 MG PO BID, TAB Omeprazole (Omeprazole) 20 Mg Capsule.dr 20 MG PO BID, CAP Discontinued Medications: Amoxicillin/Potassium Clav (Amox Tr-K Clv 875-125 mg Tab) 1 Each Tablet 1 EA PO BID, TAB FILLED 01-13-2021 #14/7 DAY SUPPLY Patient Instructions Goal/Follow Up Appt: f/u 1-2 weeks with PCP Activity & Diet Discharge Diet: No Restrictions Activity as Tolerated: Yes AFRICA NARAYANAN MD Jan 14, 2021 15:36
[2021-01-15] MEDS ORDERED: CEFDINIR 300 MG (OMNICEF) CAP PO SCH (07:00)
== END 2021-01-14 15:50 | disposition home or self-care (01) | DRG 872 ==
LOC: ER FS 22:49 → 4TH 01-14 02:00
PROVIDERS: ADMIT Family Medicine; ATTEND Family Medicine
DX: A41.9 Sepsis, unspecified organism (principal); N10 Acute pyelonephritis; N11.1 Chronic obstructive pyelonephritis; R73.9 Hyperglycemia, unspecified
CPT/HCPCS: 36415; 74177; 80053; 81000; 83605; 85007; 85027; 87040; 87088